=== PATIENT | female | born 1955 | race Caucasian/White ===

== ENCOUNTER 2018-01-21 12:50 | Emergency (ER) | payer MEDICARE, MEDICAID ==
[2018-01-21] MEDS ORDERED: NS 0.9% 1000 ML* 1,000 ML IV ONE (13:04)
[2018-01-21 13:30] LABS: ABS Basophils 0.1 10^3/ul (0-0.2); ABS Eosinophils 0.1 10^3/ul (0-0.6); ABS Lymphocytes 1.5 10^3/ul (1.0-4.8); ABS Monocytes 0.5 10^3/ul (0-0.8); ABS Neutrophils 7.7 10^3/ul (1.5-7.7); ABS Nucleated RBC 0 10^3/ul; Eosinophil % 0.6 % (0-6); Hematocrit 39 % (35-47); Hemoglobin 13.4 g/dl (12.0-16.0); Lymphocyte % 15.1 % (25-47); Mean Corpuscular HGB Conc 34 g/dl (31-36); Mean Corpuscular Hemoglobin 30 pg (27-31); Mean Corpuscular Volume 88 fL (80-97); Mean Platelet Volume 8.3 um3 (7.4-10.4); Nucleated Red Blood Cells % 0.1; Platelet Count 265 10^3/ul (150-450); Red Cell Distribution Width 13 % (10.5-15); White Blood Count 9.8 10^3/ul (3.5-10.8)
--- NOTE | 2018-01-21 13:41 | RAD ---
INDICATION: Right ankle injury. TECHNIQUE: 3 views of the right ankle were obtained. FINDINGS: There is mild diffuse soft tissue swelling. There are old fractures of the proximal diaphyses of the tibia and fibula. No acute fracture is seen. IMPRESSION: NO ACUTE FRACTURE IS SEEN.
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
--- NOTE | 2018-01-21 13:43 | RAD ---
INDICATION: Right knee injury. TECHNIQUE: 2 views of the right knee were obtained. FINDINGS: The bones are in normal alignment. No joint effusion or fracture is seen. There is moderate osteoarthritic change in the medial and lateral compartments. IMPRESSION: NO EVIDENCE FOR FRACTURE.
[2018-01-21 13:47] LABS: EGFR Non-African American 73.3 (>60)
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
[2018-01-21] MEDS ORDERED: Iohexol 300* (CONTRAST) 10 ML SDV IV ONE (14:20)
[2018-01-21] MEDS ORDERED: oxyCODONE/Acetamin 5/325 MG* TAB PO ONE (14:32)
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
--- NOTE | 2018-01-21 15:07 | RAD ---
INDICATION: Trauma, low back pain. COMPARISON: Correlation is made with a prior CT of the abdomen and pelvis of the same date. TECHNIQUE: Contiguous axial sections were obtained beginning above the L1 vertebra and continuing through the L5-S1 disc space. Images were reconstructed in the sagittal and coronal planes. FINDINGS: The vertebra are in normal alignment. No fracture is seen. At the L1-L2 level there is no disc bulge or herniation. There are mild hypertrophic changes within the facet joints. No spinal canal or neural foraminal narrowing is seen. At the L2-L3 level there is a mild broad-based disc bulge and mild hypertrophic changes within the facet joints. There is mild spinal canal narrowing and mild bilateral neural foraminal narrowing. At the L3-L4 level there is a mild broad-based disc bulge and mild to moderate hypertrophic changes within the facet joints. There is mild to moderate spinal canal narrowing and mild bilateral neural foraminal narrowing. At the L4-L5 level there is a mild broad-based disc bulge and moderate hypertrophic changes within the facet joints. There is moderate spinal canal narrowing and mild bilateral neural foraminal narrowing. At the L5-S1 level there is a mild broad-based disc bulge. There are moderate hypertrophic changes within the facet joints. No significant spinal canal narrowing is present. There is mild bilateral neural foraminal narrowing. IMPRESSION: 1. NO EVIDENCE FOR FRACTURE OR SUBLUXATION. 2. MILD TO MODERATE LUMBAR SPONDYLITIC CHANGES.
[2018-01-21 15:55] LABS: Urine Appearance Clear; Urine Blood 1+ (Negative); Urine Color Yellow; Urine Ketones Negative (Negative); Urine Protein Negative (Negative); Urine Red Blood Cell 1+(3-5/hpf) (Absent); Urine Urobilinogen Negative (Negative); Urine White Blood Cell Trace(0-5/hpf) (Absent)
[2018-01-21 17:53] VITALS: BP 134/87
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
== END 2018-01-21 17:49 | disposition home or self-care (01) ==
LOC: ED 12:50
DX: S87.81XA Crushing injury of right lower leg, initial encounter (principal); V48.0XXA Car driver injured in noncollision transport accident in nontraffic accident, initial encounter; Y92.008 Other place in unspecified non-institutional (private) residence as the place of occurrence of the external cause; R07.9 Chest pain, unspecified; K76.0 Fatty (change of) liver, not elsewhere classified; F41.9 Anxiety disorder, unspecified; Z79.899 Other long term (current) drug therapy; Z87.891 Personal history of nicotine dependence
CPT/HCPCS: 36415; 72131; 74177; 80053; 80320; 80329; 81003; 81015; 82550; 84443; 85025; 86850; 86900; 86901; 87086; 96360; 99283; A9270-GY; G0480; Q9967